=== PATIENT | female | born 1995 | race Hispanic/Latino ===

== ENCOUNTER 2020-05-01 10:22 | Emergency (ER) | payer BC ==
[~2020-05-01] VITALS: Ht 165.1 cm; Wt 145.0 kg
[2020-05-01] MEDS ORDERED: EARACHE (10:30)
[2020-05-01] MEDS ORDERED: IBUPROFEN 800 MG TAB PO ONE (11:30)
[2020-05-01] MEDS ORDERED: ACETAMINOPHEN TAB 650MG DOSE (2X325MG) PO ONE (11:30)
[2020-05-01] MEDS ORDERED: NEOM1SUS10 OTIC (11:45)
[2020-05-01] MEDS ORDERED: AUGM875T28 PO (11:45)
[2020-05-01 11:48] VITALS: BP 129/80
== END 2020-05-01 11:51 | disposition home or self-care (01) ==
LOC: M ED 10:22
DX: K11.20 Sialoadenitis, unspecified (principal); H92.02 Otalgia, left ear